=== PATIENT | female | born 1950 | race Caucasian/White ===

== ENCOUNTER 2022-03-28 00:42 | Day surgery (SDC) | payer MEDICARE, SELFPAY ==
[2022-03-13 14:26] VITALS: BMI 35.9
--- NOTE | 2022-03-26 09:29 | PM.HPGS ---
History of Present Illness History of Present Illness Consent: Risks, benefits, and alternatives have been discussed and questions answered. Patient agrees to proceed with procedure. Chief complaint: dysphagia, hx colon polyps Narrative: Margret Montes is a 72 year old female who has a history of colon polyps, having had adenomas on her last 2 colonoscopies, the? last of which was 5 years ago.? There is also family history of colon cancer in a grandmother.? she has had no recent issues with her bowels.? She does have some dysphagia.? Usually to solid food it; will hang up on the way down.? Review of Systems Review of Systems: All systems reviewed & are unremarkable except as noted in HPI and below PMFSH Past Medical History Medical History Anxiety Asthma COPD (chronic obstructive pulmonary disease) Depression Diabetes Hyperlipidemia Hypertension Osteoporosis Surgical History Surgical History Hx laparoscopic cholecystectomy Family History Family History Father Depression Mother Asthma Hypertension Depression Thyroid disorder Social History Social History Smoking packs per day: 2 Smoking cigarettes per day: 40.0 Years smoked: 40 Smoking pack-years: 80.00 Smoking status: Former smoker Alcohol intake: never Substance use: never Substance use type: does not use Living arrangements: with family Meds Home Medications and Allergies Home Medications Medication Instructions Recorded Confirmed Type aspirin 81 mg tablet,delayed 81 mg PO DAILY 03/05/22 03/28/22 History release budesonide 160 mcg-glycopyr 9 2 inh inhalation BID 03/05/22 03/28/22 History mcg-formot 4.8 mcg/actuation HFA inhaler (Breztri Aerosphere) cetirizine 10 mg tablet (Zyrtec) 10 mg PO DAILY 03/05/22 03/28/22 History fluoxetine 40 mg capsule 40 mg PO DAILY 03/05/22 03/28/22 History ibuprofen 800 mg tablet 800 mg PO Q6H PRN Pain 03/05/22 03/28/22 History insulin detemir U-100 100 unit/mL 12 unit subcut QHS 03/05/22 03/28/22 History (3 mL) subcutaneous pen (Levemir FlexTouch U-100 Insulin) lisinopril 40 mg tablet 40 mg PO DAILY 03/05/22 03/28/22 History lorazepam 0.5 mg tablet 0.5 mg PO TID PRN Anxiety 03/05/22 03/28/22 History metformin 1,000 mg tablet 1,000 mg PO BID 03/05/22 03/28/22 History primidone 50 mg tablet 50 mg PO TID 03/05/22 03/28/22 History simvastatin 20 mg tablet 20 mg PO DAILY 03/05/22 03/28/22 History Allergies Allergy/AdvReac Type Severity Reaction Status Date / Time acetaminophen [From Tylenol] Allergy Intermediate Hives Verified 03/28/22 08:22 cefuroxime [From Ceftin] Allergy Intermediate Hives Verified 03/28/22 08:22 Exam Const: General: alert Orientation/consciousness: patient oriented x3 Resp: Auscultation: clear to auscultation bilaterally Cardio: Rhythm: regular rhythm GI: GI Palp: Yes Soft to palpation and No Tenderness to palpation present (GI) Neuro: General: patient oriented x3 Assessment and Plan Assessment and plan (1) Dysphagia: Code(s): R13.10 - Dysphagia, unspecified Status: Acute Assessment and Plan: EGD with possible biopsy or dilatation or cautery. (2) Personal history of colonic polyps: Code(s): Z86.010 - Personal history of colonic polyps Status: Acute Assessment and Plan: Colonoscopy with possible biopsy or polypectomy or cautery or injection of substances.
--- NOTE | 2022-03-27 10:12 | WPDANESEPPF ---
Anes - Initial Pre Proc Eval Procedure: Operation Date: 03/28/22 09:45 Proposed Procedures p Esophagogastroduodenoscopy & Screening Colonoscopy - Jf Dominguez MD Date/Time: 03/27/22 10:12 Surgeon: Jf Dominguez MD Pre Op Diagnosis: dysphagia, hx colon polyps Patient Data Age: 72 Gender: F Height: 1.65 m Weight: 97.8 kg Allergies Allergy/AdvReac Type Severity Reaction Status Date / Time acetaminophen [From Tylenol] Allergy Intermediate Hives Verified 03/28/22 08:22 cefuroxime [From Ceftin] Allergy Intermediate Hives Verified 03/28/22 08:22 Home Medications Medication Instructions Recorded Confirmed Type aspirin 81 mg tablet,delayed 81 mg PO DAILY 03/05/22 03/28/22 History release budesonide 160 mcg-glycopyr 9 2 inh inhalation BID 03/05/22 03/28/22 History mcg-formot 4.8 mcg/actuation HFA inhaler (Breztri Aerosphere) cetirizine 10 mg tablet (Zyrtec) 10 mg PO DAILY 03/05/22 03/28/22 History fluoxetine 40 mg capsule 40 mg PO DAILY 03/05/22 03/28/22 History ibuprofen 800 mg tablet 800 mg PO Q6H PRN Pain 03/05/22 03/28/22 History insulin detemir U-100 100 unit/mL 12 unit subcut QHS 03/05/22 03/28/22 History (3 mL) subcutaneous pen (Levemir FlexTouch U-100 Insulin) lisinopril 40 mg tablet 40 mg PO DAILY 03/05/22 03/28/22 History lorazepam 0.5 mg tablet 0.5 mg PO TID PRN Anxiety 03/05/22 03/28/22 History metformin 1,000 mg tablet 1,000 mg PO BID 03/05/22 03/28/22 History primidone 50 mg tablet 50 mg PO TID 03/05/22 03/28/22 History simvastatin 20 mg tablet 20 mg PO DAILY 03/05/22 03/28/22 History Patient hx anesthesia problems: none Family hx anesthesia problems: none Results Review: All pre-operative results and documents have been reviewed as part of the pre-operative evaluation. [facility] Past Medical History Medical History (Updated 09/14/22 @ 10:12 by Angus Decker DO) Anxiety Asthma COPD (chronic obstructive pulmonary disease) Depression Diabetes Hyperlipidemia Hypertension Osteoporosis Surgical History Surgical History Hx laparoscopic cholecystectomy Family History Family History Father Depression Mother Asthma Hypertension Depression Thyroid disorder Social History Social History Smoking packs per day: 2 Smoking cigarettes per day: 40.0 Years smoked: 40 Smoking pack-years: 80.00 Smoking status: Former smoker Alcohol intake: never Substance use: never Substance use type: does not use Living arrangements: with family Anes - Eval Final PreProcedure Day of Procedure 03/27/22 10:12 Patient weight: obese Heart: regular rate and rhythm Lungs: clear to auscultation Airway: Mallampati scale class II and special considerations poor dentition Neurological: alert and oriented Last oral intake: >/= 8 hours ASA classification: IV Emergent: no Anesthetic plan: proceed Anesthesia type and monitoring: general GIVS and standard monitoring Results Review: All pre-operative results and documents have been reviewed as part of the pre-operative evaluation. Informed Consent: The patient's anesthetic plan and its attendant risks and benefits were discussed with the patient/family/POA. Questions were solicited and answers provided to the satisfaction of the patient/family/POA.
[2022-03-28 08:12] VITALS: BP 147/92; PULSE 88; RESP 20; TEMP 36.9; O2SAT 99; BMI 34.5
[2022-03-28] MEDS: LACTATED RINGERS 1,000 ML 150 ML IV CONT (08:36)
[2022-03-28 08:39] LABS: Glucose Point of Care 140 mg/dl (65-105)
--- NOTE | 2022-03-28 10:18 | SUR.OPER ---
EGD: Start 1007, End 1011, Colon: Start 1018, End 1032
[2022-03-28 10:40] VITALS: BP 147/76; PULSE 74; RESP 22; O2SAT 98
[2022-03-28 10:50] VITALS: BP 132/57; PULSE 76; RESP 20; O2SAT 99
[2022-03-28 11:00] VITALS: BP 160/82; PULSE 68; RESP 20; O2SAT 99
[2022-03-28 11:23] LABS: Glucose Point of Care 149 mg/dl (65-105)
== END 2022-03-28 11:18 | disposition home or self-care (01) ==
PROVIDERS: PCP Internal Medicine; Visit Provider Internal Medicine Gastroenterology
PROC: 0DJ08ZZ Inspection of Upper Intestinal Tract, Via Natural or Artificial Opening Endoscopic (ICD-10-PCS; CPT 43235; principal; 2022-03-28 09:45)
DX: Z12.11 Encounter for screening for malignant neoplasm of colon (principal); Z86.010 Personal history of colon polyps; K57.30 Diverticulosis of large intestine without perforation or abscess without bleeding; K21.9 Gastro-esophageal reflux disease without esophagitis; K29.70 Gastritis, unspecified, without bleeding; Z79.82 Long term (current) use of aspirin; Z79.84 Long term (current) use of oral hypoglycemic drugs; Z79.4 Long term (current) use of insulin; F41.9 Anxiety disorder, unspecified; J44.9 Chronic obstructive pulmonary disease, unspecified; E11.9 Type 2 diabetes mellitus without complications; M81.0 Age-related osteoporosis without current pathological fracture; I10 Essential (primary) hypertension; E78.5 Hyperlipidemia, unspecified; J45.909 Unspecified asthma, uncomplicated; Z90.49 Acquired absence of other specified parts of digestive tract; Z87.891 Personal history of nicotine dependence; E66.9 Obesity, unspecified; Z68.34 Body mass index [BMI] 34.0-34.9, adult
CPT/HCPCS: 43239; G0105; 82948; 87081; 88305; J2704; J7120